=== PATIENT | male | born 1995 | race Caucasian/White ===

== ENCOUNTER 2017-01-26 20:05 | Inpatient (IN) | payer BC, OTHER ==
--- NOTE | ~2017-01-26 | PN ---
Unit #: [id number] #: [id number] Patient: DIEGO CHAVEZ [id number] [facility] [address] [place] [address] [id number] I MR#: [id number] NAME: DIEGO CHAVEZ ROOM: P206 Age: 21 Sex: M Admission Date: 01/26/2017 : 1995 Attending Physician: Yuriy Ramos M.D. Admitting Physician: Yuriy Ramos M.D. Primary Care Physician: Generic Doctor Not In System [facility] PROGRESS NOTES DATE 01/28/2017 DISCUSSION The patient is resting comfortably today. He continues to complain of significant symptoms of opioid withdrawal. He is expressing interest outpatient followup in the chemical dependence intensive outpatient program once discharged. Dictated by... Yuriy Ramos M.D. CB/millie TD: 01/28/2017 14:21 JOB #: [id number] [facility] PROGRESS NOTES Page 1 of 1 X Yuriy Ramos MD X PROGRESS NOTE
--- NOTE | ~2017-01-26 | HP ---
Unit #: [id number] #: [id number] Patient: DIEGO CHAVEZ [id number] [facility] [address] [place] [address] [id number] I MR#: [id number] NAME: DIEGO CHAVEZ ROOM: P206 Age: 21 Sex: M Admission Date: 01/26/2017 : 1995 Attending Physician: Yuriy Ramos M.D. Admitting Physician: Yuriy Ramos M.D. Primary Care Physician: Generic Doctor Not In System HISTORY AND PHYSICAL HISTORY OF PRESENT ILLNESS Diego is a 21 year old admitted to [address] [place] [address] because of his continued polysubstance abuse. He has had other admissions to this facility for treatment of the same. PAST MEDICAL HISTORY 1. Long history of opioid abuse to include IV heroin. 2. Hepatitis C. PAST SURGICAL HISTORY Nothing reported ALLERGIES No known drug allergies. SOCIAL HISTORY Smokes one pack per day. Denies alcohol. Admits to long history of opioid abuse to include IV heroin. FAMILY HISTORY Medically noncontributory. REVIEW OF SYSTEMS CONSTITUTIONAL: No fever or chills. HEENT: Denies any sore throat, ear pain or runny nose. CARDIOVASCULAR: Denies chest pain, irregular heart rhythm or palpitations. CHEST: Denies shortness of breath or cough. No hemoptysis. GASTROINTESTINAL: Denies nausea, vomiting, diarrhea or chronic constipation. ENDOCRINE: Denies history of increased thirst or urination. No recent significant weight loss or gain. GENITOURINARY: Denies dysuria, frequency, or hematuria. SKIN: Denies any rashes. HEMATOLOGIC: Denies history of increased bleeding or bruising. MUSCULOSKELETAL: Denies any hot, swollen joints. No generalized muscle pain. NEUROLOGIC: Denies problems with vision or speech. No frequent, severe headaches. No numbness, tingling or weakness in any extremities. Denies loss of bladder or bowel control. CURRENT MEDICATIONS Detox protocol. Unit #: [id number] #: [id number] Patient: DIEGO CHAVEZ PHYSICAL EXAMINATION GENERAL: Alert, well-nourished, in no apparent distress. VITAL SIGNS: Blood pressure 100/58, heart rate 80, respirations 16, temperature 98.6. WEIGHT: 159 pounds. HEIGHT: 5'7". SKIN: Warm and dry without rash or lesion. HEENT: Normocephalic. TMs not viewed. Oral and nasal passages clear. Conjunctivae clear. Pupils equal, round and reactive to light and accommodation. Extraocular movements intact. NECK: Supple without lymphadenopathy or thyromegaly. HEART: Regular rate and rhythm without murmur. LUNGS: Clear. ABDOMEN: Soft, nontender. : Not done. EXTREMITIES: No evidence of cyanosis, clubbing or edema. Moves all extremities without focal deficit. NEUROLOGICAL: Grossly within normal limits. Cranial Nerves: II: Visual roberts are intact. III, IV AND : Extraocular movements are intact. Pupils are equal, round and reactive to light. V: Facial sensation is grossly normal. VII: Facial movements and expression are normal. VIII: Auditory acuity grossly intact. IX, X: Uvula is midline. Phonation is normal. XI: Patient shrugs shoulders and turns head normally. XII: Tongue protrudes in the midline. Sensory and Motor Function: Sensory and motor sensation is grossly normal. Motor: moves all extremities well. Coordination: Gait is normal. Deep Tendon Reflexes: Intact. IMPRESSION Psychiatric admission RECOMMENDATIONS PSYCHIATRIC: Per psychiatrist. MEDICAL: I see no contraindications to participating in facility's activities. MEDICAL PROGNOSIS Good. MEDICAL CONDITION Stable. Dictated by... Gisell Willson PKalebAKaleb-Bill. for Ana Landon/lorna TD: 01/28/2017 02:42 JOB #: [id number] Unit #: [id number] #: [id number] Patient: DIEGO CHAVEZ HISTORY AND PHYSICAL Page 1 of 1 X Gisell Willson HISTORY AND PHYSICAL
--- NOTE | ~2017-01-26 | PA ---
Unit #: [id number] #: [id number] Patient: DIEGO CHAVEZ [id number] [facility] [address] [place] [address] [id number] MR#: [id number] NAME: DIEGO CHAVEZ ROOM: P206 Age: 21 Sex: M Admission Date: 01/26/2017 : 1995 Date of Assessment: 01/27/2017 Attending Physician: Yuriy Ramos M.D. Admitting Physician: Yuriy Ramos M.D. Primary Care Physician: Generic Doctor Not In System PSYCHIATRIC ASSESSMENT IDENTIFYING INFORMATION The patient is a 21-year-old single white male admitted to the [address] [place] [address] with suicidal ideation and increasing use of methamphetamine and heroin. CHIEF COMPLAINT None given INFORMANT Chart. The patient cannot be aroused for interview. HISTORY OF PRESENT ILLNESS The patient is a 21-year-old white male last admitted to this facility in October of this year under similar circumstances. He is admitting reporting positive suicidal ideation with a plan to overdose related to his girlfriend's recent miscarriage. The patient also reports disagreement with his grandmother as the source of distress. The patient was last hospitalized at this facility for detox in October of this year. He did not comply with prescribed followup. At the time of admission the patient is on no prescribed psychotropic medications. He is today noted to be soundly sleeping and cannot be aroused for interview. PAST PSYCHIATRIC HISTORY Reviewed no changes. PAST MEDICAL HISTORY Reviewed no changes. MEDICATIONS None. ALLERGIES None. FAMILY HISTORY Reviewed no changes. SOCIAL HISTORY Reviewed no changes. MENTAL STATUS EXAMINATION At this time reveals the patient to be a soundly sleeping white male who Unit #: [id number] #: [id number] Patient: DIEGO CHAVEZ cannot be aroused for further interview in spite of multiple efforts on the part of this physician to arouse the patient. ASSETS To be assessed. LIABILITIES Lack or resources. DIAGNOSTIC IMPRESSION Opioid use disorder Methamphetamine use disorder Dysthymic disorder TREATMENT PLAN The patient remains hospitalized for safety and stabilization. Suicide precautions are in place and a routine detoxification protocol for opioids has been initiated. The patient will participate in appropriate lee and milieu activities with an estimate length of stay in the hospital of five days. Followup to take place through the auspices of community mental health resources. Dictated by... Yuriy Ramos M.D. /rll TD: 01/27/2017 23:56 JOB #: [id number] PSYCHIATRIC ASSESSMENT Page 1 of 1 X Yuriy Ramos MD PSYCHIATRIC ASSESSMENT
--- NOTE | ~2017-01-26 | DS ---
Unit #: [id number] #: [id number] Patient: DIEGO CHAVEZ [id number] [facility] [address] [place] [address] [id number] I MR#: [id number] NAME: DIEGO CHAVEZ ROOM: P206 Age: 21 Sex: M Admission Date: 01/26/2017 : 1995 Discharge Date: 01/29/2017 Attending Physician: Yuriy Ramos M.D. Primary Care Physician: Generic Doctor Not In System DISCHARGE SUMMARY REASON FOR ADMISSION The patient is a 21-year-old white male, admitted to the [address] [place] [address] for opioid detox. HOSPITAL COURSE The patient was admitted to the [address] [place] [address] and placed on routine detoxification protocol for opioids. His stay in the hospital was an uneventful one. His detox went smoothly and by 01/29/2017, he requested discharge with a plan to follow up in the chemical dependency intensive outpatient program provided by this facility. Discharge was ordered. FINAL DIAGNOSIS Opiate use disorder. DISPOSITION ON DISCHARGE The patient is discharged on no psychotropic or other medications. FOLLOWUP Followup will take place through the auspices of the intensive outpatient chemical dependency treatment program provided by this facility. PROGNOSIS The patient's prognosis is considered fair. He is instructed to contact this facility regarding results of pending HIV and hepatitis testing. Dictated by... Yuriy Ramos M.D. CB/ebonie TD: 01/29/2017 13:21 JOB #: [id number] Unit #: [id number] #: [id number] Patient: DIEGO CHAVEZ DISCHARGE SUMMARY Page 1 of 1 X Yuriy Ramos MD X DISCHARGE SUMMARY
[2017-01-27 09:34] LABS: BASOPHIL% 0.4 % (0-2.5); EOSINOPHIL# 0.3 X10e3 (0-0.7); EOSINOPHIL% 4.5 % (0.0-7.0); HEMATOCRIT 39.3 % (38.0-50.0); HEMOGLOBIN 13.1 gm/dL (13.0-16.0); LYMPHOCYTE# 3.1 X10e3 (1.0-3.5); LYMPHOCYTE% 44.2 % (17.0-45.0); MEAN CELL VOLUME 86.8 FL (83-96); MEAN CORPUSCULAR HGB CONC 33.4 g/dL (30-36); MEAN PLATELET VOLUME 7.8 FL (6.5-11.5); MONOCYTE# 0.6 X10e3 (0-1.0); MONOCYTE% 9.1 % (3.0-12.0); NEUTROPHIL# 2.9 X10e3 (1.5-7.1); NEUTROPHIL% 41.8 % (40-75); PLATELET COUNT 201 X10e3 (140-420); RED BLOOD COUNT 4.53 X10e (3.90-5.60); WHITE BLOOD COUNT 6.9 X10e3 (4.0-10.5)
[2017-01-27 09:41] LABS: DIFF IND NO
[2017-01-27 09:58] LABS: ALBUMIN SERUM 3.4 g/dL (3.5-5.0); BILIRUBIN,TOTAL 0.3 mg/dL (0.2-2.0); CALCIUM SERUM 8.8 mg/dL (8.4-10.2); CREATININE SERUM 0.9 mg/dL (0.6-1.4); POTASSIUM 4.3 mmol/L (3.5-5.1); PROTEIN TOTAL SERUM 5.8 g/dL (6.0-8.3)
[2017-01-27 10:01] LABS: THYROID STIMULATING HORMONE 0.68 uIU/ml (0.34-5.60)
[2017-01-27 10:08] LABS: FREE THYROXIN (T4) 0.83 ng/dL (0.58-1.64)
[2017-01-28 12:56] LABS: URINE APPEARANCE CLEAR; URINE BILIRUBIN NEG (NEG); URINE BLOOD NEG (NEG); URINE COLOR YELLOW; URINE GLUCOSE NEG (NEG); URINE KETONE NEG (NEG); URINE LEUKOCYTE ESTERASE NEG (NEG); URINE NITRATE NEG (NEG); URINE PROTEIN NEG (NEG); URINE SPECIFIC GRAVITY 1.016 (1.003-1.035); URINE UROBILINOGEN 0.2 MG/DL (NEG)
[2017-01-28 13:04] LABS: AMPHETAMINE POS (NEG); BARBITURATES NEG (NEG); BENZODIAZEPINES NEG (NEG); COCAINE NEG (NEG); MARIJUANA NEG (NEG); OPIATES POS (NEG); TRICYCLIC ANTIDEPRESSANTS NEG (NEG); U METHADONE NEG (NEG)
== END 2017-01-29 14:30 | disposition home or self-care (01) | DRG 885 ==
LOC: POF 20:05 → P2S 20:52
PROVIDERS: Specialist
DX: F31.60 Bipolar disorder, current episode mixed, unspecified (principal); B19.20 Unspecified viral hepatitis C without hepatic coma; K21.9 Gastro-esophageal reflux disease without esophagitis; E66.9 Obesity, unspecified; F17.210 Nicotine dependence, cigarettes, uncomplicated; F41.9 Anxiety disorder, unspecified
CPT/HCPCS: 80053; 80307; 81003; 84439; 84443; 85025; 86592